=== PATIENT | female | born 1995 | race Caucasian/White ===

== ENCOUNTER 2017-05-23 12:12 | Observation (INO) | payer OTHER ==
[~2017-05-23] VITALS: Ht 180.3 cm; Wt 50.3 kg
[~2017-05-23 12:12] MED LIST: NORT10CA PO
[2017-05-23] MEDS ORDERED: FAMOTIDINE 20 MG/2 ML ONE (12:39)
[2017-05-23] MEDS ORDERED: ONDANSETRON 2MG/ML, 2ML ONE ×2 (12:39→17:05)
[2017-05-23] MEDS ORDERED: FAMOTIDINE 20 MG/2 ML IVP ONE (13:00)
[2017-05-23] MEDS ORDERED: ONDANSETRON 2MG/ML, 2ML IVPush ONE (13:00)
[2017-05-23] MEDS ORDERED: SODIUM CHLORIDE 0.9% 1,000ML IVBOLUS ONE (13:00)
[2017-05-23] MEDS ORDERED: HYDROmorphone 1 MG/ML, 1ML IVPush PRN (13:00)
[2017-05-23 13:05] LABS: HEMATOCRIT 37.1 % (34.6-47.8); HEMOGLOBIN 12.2 g/dL (11.7-16.4); WHITE BLOOD COUNT 12.8 x10^3/uL (4.5-13.2)
[2017-05-23 13:17] LABS: ASPARTATE AMINO TRANSFERASE 11 U/L (15-37); BLOOD UREA NITROGEN 10 mg/dL (7-18)
[2017-05-23] MEDS ORDERED: SODIUM CHLORIDE FLUSH 10ML SYR IVF ONE (13:30)
[2017-05-23] MEDS ORDERED: CEFOTETAN PMX 2GM/50ML 50 ML IV ONE (15:30)
[2017-05-23] MEDS ORDERED: OMNIPAQUE 350 MG/ML, 100ML BOTTLE ONE (15:32)
[2017-05-23] MEDS ORDERED: CEFOTETAN PMX 1GM/50ML 0 ML ONE (15:35)
[2017-05-23] MEDS ORDERED: MIDAZOLAM 1 MG/ML, 2ML ONE (16:28)
[2017-05-23] MEDS ORDERED: FENTANYL PF 250 MCG/5ML ONE (16:29)
[2017-05-23] MEDS ORDERED: BUPIVACAINE/PF 0.5% ONE (16:31)
[2017-05-23] MEDS ORDERED: EPINEPHRINE 1 MG/ML, 1ML ONE (16:31)
[2017-05-23] MEDS ORDERED: BUPIVACAINE/PF-EPI 0.5% 1:200K INFIL ONE (17:01)
[2017-05-23] MEDS ORDERED: SUCCINYLCHOLINE 20 MG/ML, 10ML ONE (17:05)
[2017-05-23] MEDS ORDERED: PROPOFOL 10 MG/ML, 20ML ONE (17:05)
[2017-05-23] MEDS ORDERED: ROCURONIUM 10 MG/ML ONE (17:05)
[2017-05-23] MEDS ORDERED: DEXAMETHASONE 4 MG/ML, 1ML ONE (17:05)
[2017-05-23] MEDS ORDERED: NEOSTIGMINE 1 MG/ML, 10ML ONE (17:05)
[2017-05-23] MEDS ORDERED: CEFAZOLIN 1,000 MG ONE (17:05)
[2017-05-23] MEDS ORDERED: GLYCOPYRROLATE 0.2MG/1ML, 5ML ONE (17:05)
[2017-05-23] MEDS ORDERED: FENTANYL PF 100 MCG/2ML IV PRN (17:30)
[2017-05-23] MEDS ORDERED: MEPERIDINE/PF 25MG/0.5ML IVPush PRN (17:30)
[2017-05-23] MEDS ORDERED: ACETAMINOPHEN 325 MG TABLET PO PRN (17:30)
[2017-05-23] MEDS ORDERED: LORazepam 2 MG/ML, 1ML IVPush PRN (17:30)
[2017-05-23] MEDS ORDERED: OXYcodone 5 MG/5 ML ORAL.SOL UDC PO PRN (17:30)
[2017-05-23] MEDS ORDERED: SUGAMMADEX 200 MG/2 ML IVPush ONE (17:30)
[2017-05-23] MEDS ORDERED: HYDROmorphone 1 MG/ML, 1ML IV PRN (17:30)
[2017-05-23] MEDS ORDERED: PROMETHAZINE 25 MG/ML, 1ML IV PRN (17:30)
[2017-05-23] MEDS ORDERED: ALBUTEROL SULFATE 2.5 MG/3 ML NPPB PRN (17:30)
[2017-05-23] MEDS ORDERED: OXYcodone 5 MG/5 ML ORAL.SOL UDC ONE (18:03)
[2017-05-23] MEDS ORDERED: ONDANSETRON 2MG/ML, 2ML IVPush PRN (19:00)
[2017-05-23 19:30] VITALS: BP 123/85
[2017-05-23] MEDS ORDERED: HYDR-3240 PO (20:32)
[2017-05-23] MEDS ORDERED: ONDA4TAB12 PO (20:34)
[2017-05-23] MEDS: HYDROcodone/APAP 5/325 TABLET PO PRN ×2 (21:48→22:22)
== END 2017-05-23 22:35 | disposition home or self-care (01) ==
LOC: ED 14:54 → EDIP 15:40 → 4NOR 18:54
PROVIDERS: ADMIT Surgery; ATTEND Surgery
DX: K35.80 Unspecified acute appendicitis (principal); M54.9 Dorsalgia, unspecified; J45.909 Unspecified asthma, uncomplicated; F41.1 Generalized anxiety disorder; K38.1 Appendicular concretions; Z83.2 Family history of diseases of the blood and blood-forming organs and certain disorders involving the immune mechanism
CPT/HCPCS: 36415; 44950; 74177; 80053; 81003; 83690; 84703; 85025; 88304; 93005; 96374; 96375; 99285; G0378; J0171; J0330; J0690; J1100; J2250; J2405; J2704; J2710; J3010; J3490; J7030; Q9967; S0028

== ENCOUNTER 2019-07-31 01:40 | Emergency (ER) | payer OTHER ==
[~2019-07-31] VITALS: Ht 170.2 cm; Wt 50.0 kg
[~2019-07-31 01:40] MED LIST changes: +HYDR-3240 PO; +ONDA4TAB12 PO
[2019-07-31] MEDS ORDERED: ALBU18HF INH (01:53)
--- NOTE | 2019-07-31 01:54 | NUR ---
THIS IS A 24 YO FEMALE BIB [facility] FOR "I WOKE UP BECUASE I HAD TO THROW UP AND I WAS COUGHING, THEN I PASSED OUT". DENIES ANY HEAD OR NECK TRAUMA, NO PAIN NOTED ANYWHERE, [facility] IN [place]. PAITENT CONTINUALLY HAVING DRY NON-PRODUCTIVE COUGH SINCE VOMITING. ONLY STATED MEDICAL HX IS ASTHMA. ALL MONITORING IN PLACE, SINUS TACHY AT FIRST, HR NOW DOWN TO 75BPM. LUNGS ARE CLEAR THROUGHOUT. VSS, NAD, CALL LIGHT IN REACH, NEEDS ADDRESSED. EKG DONE, LABS DRAWN
[2019-07-31] MEDS ORDERED: ONDANSETRON 2MG/ML, 2ML ONE (01:57)
[2019-07-31] MEDS ORDERED: BENZONATATE 100 MG CAPSULE ONE (01:58)
[2019-07-31 01:59] LABS: BASOPHILS # (AUTO) 0.04 x10^3/uL (0-0.1); BASOPHILS % (AUTO) 0 % (0-1); EOSINOPHILS % (AUTO) 1 % (1-7); LYMPHOCYTES # (AUTO) 1.13 x10^3/uL (1-3.4); LYMPHOCYTES % (AUTO) 12 % (22-44); MD NO; MEAN CORPUSCULAR HEMOGLOBIN 26.2 pg (27.0-34.8); MEAN CORPUSCULAR HGB CONC 31.6 g/dL (32.4-35.8); MEAN CORPUSCULAR VOLUME 82.7 fL (80-100); MEAN PLATELET VOLUME 8.3 fL (7.4-10.4); MONOCYTES # (AUTO) 0.51 x10^3/uL (0.2-0.8); MONOCYTES % (AUTO) 5 % (2-9); NEUTROPHILS # (AUTO) 8.05 x10^3/uL (1.8-6.8); NEUTROPHILS % (AUTO) 82 % (42-75); PLATELET COUNT 265 x10^3/uL (130-400); RED BLOOD COUNT 4.67 x10^6/uL (3.82-5.3); RED CELL DISTRIBUTION WIDTH 16.8 % (9.6-15.2)
[2019-07-31] MEDS ORDERED: BENZONATATE 100 MG CAPSULE PO ONE (02:00)
[2019-07-31] MEDS ORDERED: ONDANSETRON 2MG/ML, 2ML IVPush ONE (02:00)
[2019-07-31] MEDS ORDERED: SODIUM CHLORIDE 0.9% 1,000ML IVBOLUS ONE ×3 (02:00→14:00)
[2019-07-31 02:12] LABS: ALANINE AMINOTRANSFERASE 12 U/L (12-78); ALBUMIN 4.1 g/dL (3.4-5.0); ANION GAP 7 mmol/L (5-15); CALCIUM 8.8 mg/dL (8.5-10.1); CHLORIDE 111 mmol/L (98-107); CREATININE 0.91 mg/dL (0.55-1.02)
[2019-07-31 02:17] LABS: ALKALINE PHOSPHATASE 41 U/L (45-117); BILIRUBIN,TOTAL 0.5 mg/dL (0.2-1.0); TOTAL PROTEIN 7.7 g/dL (6.4-8.2)
--- NOTE | 2019-07-31 02:35 | NUR ---
pt is shivering given warming measure. vss stable
[2019-07-31] MEDS ORDERED: PROMETHAZINE 25 MG/ML, 1ML ONE (03:36)
--- NOTE | 2019-07-31 03:37 | NUR ---
PT FAILED ROAD TEST APPROX 4 STEPS INTO TRIALS. PT COMPLAINS OF INCREASING NAUSEA. PT MOVED BACK TO BED. MD AT BEDSIDE DISCUSSING POC. PLAN IS FOR REPEAT EKG AND PHENERGAN. PT AGREEABLE TO THIS.
--- NOTE | 2019-07-31 03:57 | NUR ---
PT STATES NO CHANGE IN NAUSEA AT THIS TIME. PT AND FRIEND DENY FURTHER NEEDS AT THIS TIME.
[2019-07-31] MEDS ORDERED: PROMETHAZINE 25 MG/ML, 1ML IM ONE (04:00)
--- NOTE | 2019-07-31 04:32 | NUR ---
PT VOMITTED ALL JOSHUA THAT PT DRANK. WAS NOTIFIED WILL GIVE ONE MORE NS BOLUS AT THIS TIME PT STATED :" I AM NOT FEELING WELL " PT IS PALE STILL HAVING DRY COUGH FRIEND AT BED SIDE
[2019-07-31] MEDS ORDERED: DIPHENHYDRAMINE 50 MG/ML, 1ML ONE (04:52)
[2019-07-31] MEDS ORDERED: PROCHLORPERAZINE 5 MG/ML, 2ML ONE (04:52)
[2019-07-31] MEDS ORDERED: DIPHENHYDRAMINE 50 MG/ML, 1ML IVPush ONE (05:00)
[2019-07-31] MEDS ORDERED: DIPHENHYDRAMINE 25 MG CAPSULE PO ONE (05:00)
[2019-07-31] MEDS ORDERED: PROCHLORPERAZINE 5 MG/ML, 2ML IVPush ONE (05:00)
--- NOTE | 2019-07-31 05:20 | NUR ---
pt will be admitted per dr beltran d/t pt's feeling is not doing well until now
[2019-07-31] MEDS ORDERED: PROMETHAZINE 25 MG/ML, 1ML IM PRN (06:00)
[2019-07-31] MEDS ORDERED: ONDANSETRON 2MG/ML, 2ML IVPush PRN (06:00)
--- NOTE | 2019-07-31 06:54 | NUR ---
REPORT RECEIVED FROM ABELARDO JIMENEZ. PT RESTING ON [employer]. CONNECTED TO MONITOR. VSS. DENIES NEEDS. AWARE OF POC.
[2019-07-31] MEDS: SODIUM CHLORIDE 0.9% 1,000 ML IV SCH ×2 (07:03→14:05)
--- NOTE | 2019-07-31 07:17 | NUR ---
PT HELPED TO BATHROOM. ABLE TO AMBULATE BUT ONCE IN BATHROOM BECAME VERY DIZZY, LIGHT HEADED, AND NAUSEAS. HELPED BACK TO BED. WAS NOT ABLE TO URINATE. BSC PLACED AT BEDSIDE FOR NEXT TIME SHE FEELS SHE NEEDS TO VOID. PT DENIES NEEDS. CONNECTED TO MONITOR. FEELING BETTER NOW THAT SHE IS LAYING DOWN.
--- NOTE | 2019-07-31 07:18 | NUR ---
PT STATES SHE DOES NOT WANT BREAKFAST AT THIS TIME.
--- NOTE | 2019-07-31 07:31 | NUR ---
cardiac rhythm strip printed and on chart
--- NOTE | 2019-07-31 07:57 | NUR ---
HOSPITAL BED ORDERED FOR PT.
--- NOTE | 2019-07-31 08:04 | NUR ---
HOSPITAL BED HERE. PT STATES SHE DOES NOT WANT TO TRANSFER TO A NEW BED YET.
--- NOTE | 2019-07-31 08:55 | NUR ---
PT HELPED TO BSC. PROVIDING URINE SAMPLE NOW.
--- NOTE | 2019-07-31 09:15 | NUR ---
PT MOVED TO HOSPITAL BED. CONNECTED TO MONITOR. VSS. PROVIDED WITH SALTINE CRACKERS. HAS WATER. DENIES FURTHER NEEDS. STATES SHE IS FEELING SLIGHTLY BETTER AFTER SLEEPING SOME. JOSELYN.
--- NOTE | 2019-07-31 09:23 | NUR ---
UA COLLECTED AND SENT TO LAB.
[2019-07-31 09:25] LABS: MICROSCOPIC NOT IND
[2019-07-31 09:28] LABS: CULTURE INDICATED? NO
[2019-07-31 09:38] LABS: AMPHETAMINE SCREEN, URINE Negative (Negative); BARBITURATE SCREEN, URINE Negative (Negative); BENZODIAZEPINE SCREEN, URINE Negative (Negative); CANNABINOID SCREEN, URINE Negative (Negative); COCAINE SCREEN, URINE Negative (Negative); METHADONE SCREEN, URINE Negative (Negative); OPIATE SCREEN, URINE Negative (Negative)
--- NOTE | 2019-07-31 10:21 | NUR ---
PT RESTING ON HOSPITAL BED. EYES CLOSED. RESPIRATIONS EVEN AND UNLABORED. NADN. VSS.
--- NOTE | 2019-07-31 11:28 | NUR ---
[facility] WAS AT BEDSIDE ASSESSING PT.
--- NOTE | 2019-07-31 11:33 | NUR ---
PT PROVIDED WITH CUP OF ICE CHIPS. DENIES FURTHER NEEDS. NADN. VSS. RESTING ON HOSPITAL BED.
--- NOTE | 2019-07-31 11:47 | NUR ---
cardiac rhythm strip printed and on chart
--- NOTE | 2019-07-31 12:38 | NUR ---
BREAK RN: PT CURRENTLY RESTING ON BED IN QUIET, DARK ROOM. NAD NOTED. SKIN PWD. RESP EVEN AND UNLABORED. NST 100'S NOTED ON [employer]NA[employer]. CALL LIGHT WITHIN REACH. WILL CONT TO MONITOR PT.
--- NOTE | 2019-07-31 13:13 | NUR ---
PT WHEELED TO BATHROOM (REQUESTED SO SHE CAN "STRETCH HER LEGS"). PT VOIDED. NOW RESTING ON HOSPITAL BED. NADN. CONNECTED TO MONITOR. VSS. DENIES FURTHER NEEDS.
--- NOTE | 2019-07-31 14:10 | NUR ---
PT MEDICATED PER EMAR. RESTING ON HOSPITAL BED. NADN. VSS. DENIES NEEDS AT THIS TIME.
--- NOTE | 2019-07-31 15:06 | NUR ---
[facility] AT BEDSIDE. PT HOPEFUL TO GO HOME NOW THAT SHE IS STARTING TO FEEL BETTER. DRINKING WATER WITH NO EMESIS AND NO NAUSEA. ORTHOSTATICS NEGATIVE. DDIMER AND FLU TO BE TESTED.
--- NOTE | 2019-07-31 15:14 | NUR ---
LAB AT [facility].
[2019-07-31 15:48] LABS: RAPID INFLUENZA A Negative (Negative); RAPID INFLUENZA B Negative (Negative)
--- NOTE | 2019-07-31 16:15 | NUR ---
LATE NOTE: PA NOTIFIED OF HIGH DDIMER. PA STATES CTA WILL BE ORDERED.
--- NOTE | 2019-07-31 17:32 | NUR ---
PATIENT AMBULATED TO THE BATHROOM WITH A STEADY GAIT. DIET TRAY DELIVERED. CALL LIGHT IN REACH. AWAITING CT.
--- NOTE | 2019-07-31 17:38 | NUR ---
PT PROVIDED WITH DINNER TRAY. RESTING ON HOSPITAL BED. NADN. DENIES NEEDS. CALL LIGHT IN REACH.
--- NOTE | 2019-07-31 18:00 | NUR ---
PT TO CT NOW.
--- NOTE | 2019-07-31 18:14 | NUR ---
PT BACK FROM CT. RESTING ON HOSPITAL BED. NADN. CONNECTED TO MONITOR. PT ATE A LITTLE BIT OF SALAD FOR DINNER AND CONTINUES TO EAT A FEW SALTINES. NO NASUEA OR VOMITING. IS DRINKING WATER.
[2019-07-31] MEDS ORDERED: OMNIPAQUE 350 MG/ML, 100ML BOTTLE ONE (18:19)
--- NOTE | 2019-07-31 18:44 | NUR ---
cardiac rhythm strip printed and on chart.
--- NOTE | 2019-07-31 18:47 | NUR ---
Report received from ABELARDO Peacock. This RN to assume care.
--- NOTE | 2019-07-31 18:49 | NUR ---
Patient resting in bed with no complaints. Respirations even and unlabored.
[2019-07-31 19:45] VITALS: BP 101/70
--- NOTE | 2019-07-31 19:49 | NUR ---
Patient discharge instructions given. All questions and concerns addressed. Patient ambulatory with a steady gait. Belongings with patient.
== END 2019-07-31 19:53 | disposition home or self-care (01) ==
LOC: ED 02:23 → INTOOBSV 05:19 → UNDOADMOB 05:19 → EDIP 05:19 → ED 19:53
DX: R11.10 Vomiting, unspecified (principal); R55 Syncope and collapse; J45.909 Unspecified asthma, uncomplicated; Z90.89 Acquired absence of other organs
CPT/HCPCS: 36415; 71045; 71275; 80053; 80307; 81003; 83735; 84100; 84443; 84703; 85025; 85379; 87400; 93005; 93306; 96361; 96372; 96374; 96375; 99284; J0780; J1200; J2405; J2550; J7030; Q9967